=== PATIENT | male | born 1965 | race Caucasian/White ===

== ENCOUNTER 2018-07-12 12:36 | Emergency (ER) | payer OTHER ==
[~2018-07-12] VITALS: Ht 177.8 cm; Wt 119.3 kg
[2018-07-12] MEDS ORDERED: CARVEDILOL12.5 MG PO (12:51)
[2018-07-12] MEDS ORDERED: SPIRONOLACTONE25 M1 PO (12:51)
[2018-07-12] MEDS ORDERED: LISINOPRIL10 MG PO (12:51)
[2018-07-12] MEDS ORDERED: VICTOZA0.6 MG/0.1 SUBQ (12:51)
[2018-07-12] MEDS ORDERED: COUMADIN 4 MG TA4 M1 PO (12:51)
[2018-07-12] MEDS ORDERED: METFORMIN HCL500 MG PO (12:51)
[2018-07-12] MEDS ORDERED: BASAGLAR K100 UNIT/1 SUBQ (12:51)
[2018-07-12] MEDS ORDERED: DEMADEX20 MG PO (12:52)
[2018-07-12] MEDS ORDERED: POTASSIUM20 PO (12:53)
[2018-07-12] MEDS ORDERED: DIGOXIN125 MCG PO (12:53)
[2018-07-12 13:02] LABS: BE(vivo) -0.1 mmol/L (-2 to +3); HCO3 26.7 mmol/L (22.0-26.0); PCO2 VENOUS 51.9 mmHg (41.0-51.0); PO2 VENOUS 28.6 mmHg (35.0-45.0)
[2018-07-12 13:22] LABS: ALBUMIN 4.2 g/dL (3.4-5.0); ANION GAP 10 mmol/L (7-16); BUN 19 mg/dL (7-18); CALCIUM 9.6 mg/dL (8.5-10.1); CHLORIDE 92 mmol/L (98-107); CO2 28 mmol/L (21-32); CREATININE 1.4 mg/dL (0.7-1.3); POTASSIUM 4.6 mmol/L (3.5-5.1); SGOT 27 U/L (15-37); SGPT 60 U/L (30-65); SODIUM 130 mmol/L (136-145); TOTAL BILIRUBIN 0.8 mg/dL (<0.1-1.0); TOTAL PROTEIN 8.1 g/dL (6.4-8.2); TROPONIN-I <0.06 ng/mL (<0.06)
[2018-07-12 13:23] LABS: ABSOLUTE NEUTROPHILS 4.2 thou/uL (1.4-8.2); BASOPHILS 0.4 % (0.0-2.0); EOSINOPHILS 1.7 % (0.0-3.0); HEMATOCRIT 44.6 % (42.0-52.0); HEMOGLOBIN 15.3 gm/dL (14.0-18.0); LYMPHOCYTES 19.7 % (24.0-44.0); MCH 29.6 pg (26.0-34.0); MCHC 34.4 g/dL (28.0-37.0); MCV 86.3 fL (80.0-100.0); MONOCYTES 6.5 % (1.0-8.0); PLATELET COUNT 211 thou/uL (150-400); POLYS 71.7 % (36.0-66.0); RBC 5.17 mil/uL (4.50-6.00); RDW 12.7 % (10.5-14.5); WBC 5.8 thou/uL (4.0-11.0)
[2018-07-12 13:26] LABS: GLUCOSE 572 mg/dL (74-106)
[2018-07-12 14:38] LABS: INR 2.4; PROTIME 24.6 Seconds (9.3-11.4)
[2018-07-12 16:50] VITALS: BP 114/75
--- NOTE | 2018-07-13 01:23 | EKG ---
[place] [address] [address] [address] ELECTROCARDIOGRAM REPORT Name: GABBY LOCO Room #: DEP BRITTANEY Ferrer#: [id number] ������������������ Admission: 07/12/18 ������������������ Attend Phys: Discharge: 07/12/18 ������������������ Date of : 61 Report #: [id number] ����������������������������������������������������������������� [id number] THIS REPORT FOR: //name// [facility] ED Test Date: 2018-07-12 Test Time: 12:37:42 Pat Name: GABBY LOCO Department: Room: Gender: M [employer] Conveyor Operator: CW : 1965 Requested By: Orly Gomes Order Number: [id number] MD: Harman Carver Measurements Intervals [place] Rate: 93 P: 67 OK: 196 QRS: -10 QRSD: 97 T: 74 QT: 354 QTc: 441 Interpretive Statements Sinus rhythm Biatrial enlargement Inferior infarct, old Poor R-wave progression Nonspecific ST-T wave changes No previous ECG available for comparison Electronically Signed On 07-13-2018 1:23:03 CDT by Harman Carver [email or web address] ��������������������������������������������� <ELECTRONICALLY SIGNED> ���������������������������������������� By: Harman Carver MD ��������������������������������������������� 07/13/18 0123 1237 1237 Harman Carver MD /[email or web address]
== END 2018-07-12 16:51 | disposition home or self-care (01) ==
LOC: ER 12:36
PROVIDERS: Student in an Organized Health Care Education/Training Program
DX: T82.198A Other mechanical complication of other cardiac electronic device, initial encounter (principal); E11.9 Type 2 diabetes mellitus without complications; I50.9 Heart failure, unspecified; F17.290 Nicotine dependence, other tobacco product, uncomplicated; Z79.4 Long term (current) use of insulin; Z91.041 Radiographic dye allergy status; Y83.8 Other surgical procedures as the cause of abnormal reaction of the patient, or of later complication, without mention of misadventure at the time of the procedure; Y92.89 Other specified places as the place of occurrence of the external cause